=== PATIENT | male | born 1975 | race Caucasian/White ===

== ENCOUNTER → 2024-07-07 18:24 | Outpatient (REF) | payer OTHER, BC, SELFPAY | LOC: PAVMRI 18:24 | PROVIDERS: ATTENDING PHYSICIAN Nurse Practitioner | DX: M79.604 Pain in right leg (principal); S86.111A Strain of other muscle(s) and tendon(s) of posterior muscle group at lower leg level, right leg, initial encounter | CPT/HCPCS: 73718 ==